=== PATIENT | female | born 1930 | race Caucasian/White ===

== ENCOUNTER 2016-12-01 12:32 | Emergency (ER) | payer OTHER ==
[~2016-12-01] VITALS: Ht 154.9 cm; Wt 47.7 kg
[~2016-12-01 12:32] MED LIST: ASPIRIN E.C.81 M1 PO; ATENOLOL25 MG PO; ATIVAN0.5 MG PO; AUGMENTIN875 MG PO; BACTRIM,SEPT1 TABLET PO; BLOOD PRESSURE PILL PO; CARAFATE100 MG/ML PO; CENTRUM SILV1 TABLE1 PO; CLONIDINE HCL0.1 MG PO; CYANOCOBALAM1000 MCG PO; FISH OIL 1,0001 EAC7 PO; FLAGYL500 MG PO; Fish Oil PO; KYTRIL1 MG PO; LISINOPRIL-HCT1 EAC3 PO; LISINOPRIL20 MG PO; LO-DOSE ASPIRIN81 M1 PO; LORAZEPAM0.5 MG PO; LOVASTATIN40 MG PO; METAMUCIL POWD798 GM PO; MULTIVITAMIN1 EAC2 PO; Mevacor PO; OMEPRAZOLE40 M1 PO; ONDANSETRON HCL4 MG PO; OXYBUTYNIN CHLOR5 MG PO; PEPCID AC20 M1 PO; PRINIVIL20 MG PO; PROBIOTIC1 EAC1 PO; PROTONIX40 MG PO; SPIRIVA1 INHALATI IH; SPIRONOLACTONE25 MG PO; SUCRALFATE1 GM PO; VENTOLIN HFA18 GM IH; VITAMIN B-650 M1 PO; VITAMIN B-650 MG PO; VITAMIN B12 100MCG PO; VITAMIN D31000 UNIT PO; ZANTAC150 MG PO; ZITHROMAX Z-PA250 MG PO; ZOFRAN ODT4 MG PO; ZOFRAN4 MG PO; predniSONE PO
[2016-12-01 14:30] LABS: ADD MIUA? YES; BILIRUBIN NEGATIVE; BLOOD SMALL; COLOR YELLOW ((YELLOW)); GLUCOSE (STRIP) NEGATIVE; KETONES NEGATIVE; LEUKOCYTES NEGATIVE; NITRITE NEGATIVE; PROTEIN (STRIP) NEGATIVE; SPECIFIC GRAVITY 1.012 (1.000-1.030); UROBILINOGEN 0.2 MG/DL (0.2-1.0)
[2016-12-01 14:38] LABS: BACTERIA RARE /HPF; CALCIUM OXALATE CRYSTALS 2+ /HPF; EPITHELIAL CELLS NONE SEEN /HPF; MUCUS TRACE /LPF; UCUL ADDED? NO; WHITE BLOOD CELLS 0-5 /HPF (0-5)
[2016-12-01] MEDS ORDERED: ZOFRAN ODT4 MG PO (15:24)
[2016-12-01] MEDS ORDERED: COLACE100 MG PO (15:24)
[2016-12-01 15:44] VITALS: BP 145/79
[2016-12-02] MEDS ORDERED: ZOFRAN ODT4 MG PO (16:49)
[2016-12-02] MEDS ORDERED: TYLENOL EXTRA500 MG PO (16:51)
[2016-12-02] MEDS ORDERED: PROBIOTIC1 EAC1 PO (16:51)
[2016-12-02] MEDS ORDERED: BACTRIM,SEPT1 TABLET PO (16:51)
== END 2016-12-01 15:45 | disposition home or self-care (01) ==
LOC: EME 12:32
DX: R10.30 Lower abdominal pain, unspecified (principal); R11.0 Nausea; K59.00 Constipation, unspecified; R31.9 Hematuria, unspecified; Z79.2 Long term (current) use of antibiotics; E78.5 Hyperlipidemia, unspecified
CPT/HCPCS: 74020; 81003; 99281; 99284

== ENCOUNTER 2016-12-02 14:29 | Observation (INO) | payer OTHER ==
[~2016-12-02] VITALS: Ht 156.2 cm; Wt 46.2 kg
[~2016-12-02 14:29] MED LIST changes: +COLACE100 MG PO
[2016-12-02 15:26] LABS: MCH 31.9 PG (29.0-34.0); MCV 91.1 FL (83-99); MEAN PLAT.VOLUME 9.7 uM^3 (9.5-12.4); PLATELET COUNT 310 K/uL (156-360); RBC DIS.WIDTH-CV 12.1 % (11.8-14.6); RBC DIS.WIDTH-SD 40.5 % (39-53); RED BLOOD COUNT 4.39 M/uL (3.80-5.20); WHITE BLOOD COUNT 4.6 K/uL (4.1-10.2)
[2016-12-02 15:46] LABS: TROP-I INTERPRETATION NEGATIVE; TROPONIN-I < 0.01 ng/mL (0.0-0.30)
[2016-12-02 15:56] LABS: ADD MIUA? YES; BILIRUBIN NEGATIVE; BLOOD SMALL; COLOR YELLOW ((YELLOW)); GLUCOSE (STRIP) NEGATIVE; KETONES NEGATIVE; LEUKOCYTES NEGATIVE; NITRITE NEGATIVE; PROTEIN (STRIP) NEGATIVE; SPECIFIC GRAVITY 1.009 (1.000-1.030); UROBILINOGEN 0.2 MG/DL (0.2-1.0)
[2016-12-02 16:16] LABS: CHLORIDE 93 mEq/L (99-109); POTASSIUM 4.9 mEq/L (3.7-5.4); SODIUM 123 mEq/L (136-147)
[2016-12-02 16:18] LABS: GLUCOSE 92 mg/dL (70-99)
[2016-12-02 16:19] LABS: ANION GAP 9 MEQ/L (2-14)
[2016-12-02 16:20] LABS: TOTAL BILIRUBIN 0.4 mg/dL (0.0-1.0)
[2016-12-02 16:22] LABS: ALKALINE PHOSPHATASE 74 IU/L (3-129); GFR ESTIMATE (CALCULATED) 56 mL/min/
[2016-12-02 16:23] LABS: UREA NITROGEN (BUN) 11 mg/dL (9-23)
[2016-12-02 16:25] LABS: LIPASE 54 U/L (1.0-51.0)
[2016-12-02 16:40] LABS: BACTERIA NONE SEEN /HPF; EPITHELIAL CELLS NONE SEEN /HPF; HYALINE CASTS 0-5 /LPF; MUCUS TRACE /LPF; RED BLOOD CELLS 0-5 /HPF (0-5); UCUL ADDED? NO; UNCLASSIFIED CRYSTALS 2+ /HPF; WHITE BLOOD CELLS 0-5 /HPF (0-5)
[2016-12-02] MEDS ORDERED: ZOFRAN ODT4 MG PO (16:49)
[2016-12-02] MEDS ORDERED: TYLENOL EXTRA500 MG PO (16:51)
[2016-12-02] MEDS ORDERED: BACTRIM,SEPT1 TABLET PO (16:51)
[2016-12-02] MEDS ORDERED: PROBIOTIC1 EAC1 PO (16:51)
[2016-12-02 20:55] VITALS: BP 130/80
[2016-12-03 00:29] VITALS: BP 151/61
[2016-12-03 04:12] VITALS: BP 148/68
[2016-12-03 07:45] VITALS: BP 146/71
[2016-12-03 10:48] VITALS: BP 142/68
[2016-12-03 11:05] LABS: ANION GAP 10 MEQ/L (2-14); CHLORIDE 100 MEQ/L (99-109); POTASSIUM 4.4 MEQ/L (3.7-5.4); SAMPLE HEMOLYSIS CHECK 0; SAMPLE ICTERIC CHECK 0; SAMPLE LIPEMIA CHECK 0
[2016-12-03 11:06] LABS: SODIUM 133 MEQ/L (136-147)
[2016-12-03 11:10] LABS: GFR ESTIMATE (CALCULATED) > 59 mL/min/; GLUCOSE 113 mg/dL (70-99); UREA NITROGEN (BUN) 6 mg/dL (9-23)
[2016-12-03 16:00] VITALS: BP 190/82
== END 2016-12-03 18:02 | disposition home or self-care (01) ==
LOC: EME 14:29 → EDOF 19:22 → 5WEST 19:22 → EDOF 19:22 → 5WEST 20:45
PROVIDERS: Emergency Medicine; Hospitalist; Physician Assistant
DX: R11.0 Nausea (principal); N17.9 Acute kidney failure, unspecified; N39.0 Urinary tract infection, site not specified; E87.1 Hypo-osmolality and hyponatremia; E87.6 Hypokalemia; E86.0 Dehydration; I10 Essential (primary) hypertension; E78.5 Hyperlipidemia, unspecified; J44.9 Chronic obstructive pulmonary disease, unspecified; Z86.711 Personal history of pulmonary embolism
CPT/HCPCS: 74176; 80048; 80053; 81003; 83605; 83690; 84484; 85027; 93005; 99281; 99285; G0378; J0780; J1644; J7040; J7042; S0028

== ENCOUNTER 2016-12-07 16:16 | Observation (INO) | payer OTHER ==
[~2016-12-07] VITALS: Ht 154.9 cm; Wt 47.5 kg
[~2016-12-07 16:16] MED LIST changes: +TYLENOL EXTRA500 MG PO
[2016-12-07 17:19] LABS: HEMATOCRIT 36.4 % (36.0-46.0); MCH 31.4 PG (29.0-34.0); MCHC 34.3 G/DL (30.0-36.0); MCV 91.5 FL (83-99); MEAN PLAT.VOLUME 8.7 uM^3 (9.5-12.4); PLATELET COUNT 225 K/uL (156-360); RBC DIS.WIDTH-CV 11.6 % (11.8-14.6); RBC DIS.WIDTH-SD 39.5 % (39-53); RED BLOOD COUNT 3.98 M/uL (3.80-5.20)
[2016-12-07 17:24] LABS: WHITE BLOOD COUNT 7.1 K/uL (4.1-10.2)
[2016-12-07 17:28] LABS: CHLORIDE 89 mEq/L (99-109); POTASSIUM 4.2 mEq/L (3.7-5.4); SODIUM 123 mEq/L (136-147)
[2016-12-07 17:29] LABS: GLUCOSE 100 mg/dL (70-99)
[2016-12-07 17:31] LABS: ANION GAP 12 MEQ/L (2-14)
[2016-12-07 17:33] LABS: GFR ESTIMATE (CALCULATED) > 59 mL/min/
[2016-12-07 17:34] LABS: UREA NITROGEN (BUN) 8 mg/dL (9-23)
[2016-12-07 17:39] LABS: TROP-I INTERPRETATION NEGATIVE; TROPONIN-I < 0.01 ng/mL (0.0-0.30)
[2016-12-07] MEDS ORDERED: POLYETHYLENE G255 GM PO (19:01)
[2016-12-07] MEDS ORDERED: SPIRONOLACTONE25 MG PO (19:01)
[2016-12-07 23:59] VITALS: BP 164/82
[2016-12-08 04:31] VITALS: BP 104/55
[2016-12-08 06:17] LABS: HEMATOCRIT 33.4 % (36.0-46.0); MCH 31.7 PG (29.0-34.0); MCHC 34.4 G/DL (30.0-36.0); PLATELET COUNT 199 K/uL (156-360); RBC DIS.WIDTH-CV 11.9 % (11.8-14.6); RBC DIS.WIDTH-SD 39.9 % (39-53); RED BLOOD COUNT 3.63 M/uL (3.80-5.20); WHITE BLOOD COUNT 5.3 K/uL (4.1-10.2)
[2016-12-08 06:56] LABS: ANION GAP 6 MEQ/L (2-14); CHLORIDE 97 MEQ/L (99-109); GFR ESTIMATE (CALCULATED) > 59 mL/min/; GLUCOSE 85 mg/dL (70-99); POTASSIUM 4.2 MEQ/L (3.7-5.4); SAMPLE HEMOLYSIS CHECK 0; SAMPLE ICTERIC CHECK 0; SAMPLE LIPEMIA CHECK 0; UREA NITROGEN (BUN) 7 mg/dL (9-23)
[2016-12-08 06:58] LABS: SODIUM 131 MEQ/L (136-147)
[2016-12-08 07:28] LABS: ADD MIUA? YES; BILIRUBIN NEGATIVE; BLOOD SMALL; COLOR STRAW ((YELLOW)); GLUCOSE (STRIP) NEGATIVE; KETONES NEGATIVE; LEUKOCYTES NEGATIVE; NITRITE NEGATIVE; PROTEIN (STRIP) NEGATIVE; SPECIFIC GRAVITY 1.003 (1.000-1.030); UROBILINOGEN 0.2 MG/DL (0.2-1.0)
[2016-12-08 07:32] LABS: BACTERIA NONE SEEN /HPF; EPITHELIAL CELLS NONE SEEN /HPF; MUCUS NONE SEEN /LPF; RED BLOOD CELLS 0-5 /HPF (0-5); UCUL ADDED? NO; WHITE BLOOD CELLS NONE SEEN /HPF (0-5)
[2016-12-08 08:00] VITALS: BP 144/65
[2016-12-08] MEDS ORDERED: CLONIDINE HCL0.1 MG PO (11:11)
[2016-12-08] MEDS ORDERED: LISINOPRIL20 MG PO (11:11)
== END 2016-12-08 13:48 | disposition home or self-care (01) ==
LOC: EME 16:16 → EXP 16:16 → EDOF 20:50 → 5WEST 20:50
PROVIDERS: Hospitalist
DX: I16.0 Hypertensive urgency (principal); I10 Essential (primary) hypertension; E87.1 Hypo-osmolality and hyponatremia; R63.1 Polydipsia; J44.9 Chronic obstructive pulmonary disease, unspecified; M19.90 Unspecified osteoarthritis, unspecified site; Z86.711 Personal history of pulmonary embolism; Z87.891 Personal history of nicotine dependence
CPT/HCPCS: 80048; 81003; 83935; 84300; 84484; 85027; 93005; 99202; 99281; 99285; G0378; J1644; J7030

== ENCOUNTER 2017-08-22 17:14 | Emergency (ER) | payer OTHER ==
[~2017-08-22] VITALS: Ht 154.9 cm; Wt 47.5 kg
[~2017-08-22 17:14] MED LIST changes: +POLYETHYLENE G255 GM PO
[2017-08-22 18:21] LABS: CHLORIDE 99 mEq/L (99-109); POTASSIUM 3.7 mEq/L (3.7-5.4); SODIUM 134 mEq/L (136-147)
[2017-08-22 18:23] LABS: GLUCOSE 95 mg/dL (70-99)
[2017-08-22 18:25] LABS: ANION GAP 5 MEQ/L (2-14); TOTAL BILIRUBIN 0.4 mg/dL (0.0-1.0)
[2017-08-22 18:27] LABS: ALKALINE PHOSPHATASE 83 IU/L (3-129); GFR ESTIMATE (CALCULATED) > 59 mL/min/
[2017-08-22 18:28] LABS: UREA NITROGEN (BUN) 13 mg/dL (9-23)
[2017-08-22 18:33] LABS: TROP-I INTERPRETATION NEGATIVE; TROPONIN-I 0.01 ng/mL (0.0-0.30)
[2017-08-22 18:36] LABS: MCH 31.8 PG (29.0-34.0); MCHC 33.5 G/DL (30.0-36.0); PLATELET COUNT 224 K/uL (156-360); RBC DIS.WIDTH-CV 12.3 % (11.8-14.6); RBC DIS.WIDTH-SD 42.9 % (39-53); RED BLOOD COUNT 4.21 M/uL (3.80-5.20); WHITE BLOOD COUNT 6.1 K/uL (4.1-10.2)
[2017-08-22 19:41] LABS: ADD MIUA? YES; BILIRUBIN NEGATIVE; BLOOD MODERATE; COLOR COLORLESS ((YELLOW)); GLUCOSE (STRIP) NEGATIVE; KETONES NEGATIVE; LEUKOCYTES TRACE; NITRITE NEGATIVE; PROTEIN (STRIP) NEGATIVE; SPECIFIC GRAVITY 1.004 (1.000-1.030); UROBILINOGEN 0.2 MG/DL (0.2-1.0)
[2017-08-22 20:03] LABS: BACTERIA RARE /HPF; EPITHELIAL CELLS NONE SEEN /HPF; MUCUS NONE SEEN /LPF; RED BLOOD CELLS 15-20 /HPF (0-5); UCUL ADDED? NO; WHITE BLOOD CELLS 0-5 /HPF (0-5)
[2017-08-22 21:36] VITALS: BP 140/72
[2017-08-22 21:38] LABS: TROP-I INTERPRETATION NEGATIVE; TROPONIN-I 0.01 ng/mL (0.0-0.30)
[2017-08-23] MEDS ORDERED: PERSANTINE50 MG PO (17:22)
== END 2017-08-22 21:36 | disposition home or self-care (01) ==
LOC: EME 17:14
PROVIDERS: Nurse Practitioner Family
DX: I10 Essential (primary) hypertension (principal); R51 Headache; I49.9 Cardiac arrhythmia, unspecified; E78.5 Hyperlipidemia, unspecified; Z85.42 Personal history of malignant neoplasm of other parts of uterus; Z90.710 Acquired absence of both cervix and uterus; Z79.82 Long term (current) use of aspirin; Z87.891 Personal history of nicotine dependence
CPT/HCPCS: 80053; 81003; 83835 90; 84484; 85027; 93005; 99281; 99285

== ENCOUNTER 2017-08-23 15:33 | Emergency (ER) | payer OTHER ==
[~2017-08-23] VITALS: Ht 154.9 cm; Wt 47.4 kg
[2017-08-23 16:23] LABS: HEMATOCRIT 39.4 % (36.0-46.0); MCH 32.1 PG (29.0-34.0); MCV 94.3 FL (83-99); MEAN PLAT.VOLUME 9.7 uM^3 (9.5-12.4); PLATELET COUNT 217 K/uL (156-360); RBC DIS.WIDTH-CV 12.3 % (11.8-14.6); RBC DIS.WIDTH-SD 42.8 % (39-53); RED BLOOD COUNT 4.18 M/uL (3.80-5.20); WHITE BLOOD COUNT 7.4 K/uL (4.1-10.2)
[2017-08-23 16:32] LABS: CHLORIDE 96 mEq/L (99-109); SODIUM 134 mEq/L (136-147)
[2017-08-23 16:33] LABS: GLUCOSE 96 mg/dL (70-99)
[2017-08-23 16:35] LABS: ANION GAP 10 MEQ/L (2-14)
[2017-08-23 16:37] LABS: GFR ESTIMATE (CALCULATED) > 59 mL/min/
[2017-08-23 16:38] LABS: UREA NITROGEN (BUN) 16 mg/dL (9-23)
[2017-08-23 17:07] VITALS: BP 186/94
[2017-08-23] MEDS ORDERED: PERSANTINE50 MG PO (17:22)
== END 2017-08-23 17:26 | disposition home or self-care (01) ==
LOC: EME 15:33
PROVIDERS: Physician Assistant
DX: I10 Essential (primary) hypertension (principal); E78.5 Hyperlipidemia, unspecified; K21.9 Gastro-esophageal reflux disease without esophagitis; Z87.891 Personal history of nicotine dependence; Z85.42 Personal history of malignant neoplasm of other parts of uterus; Z90.710 Acquired absence of both cervix and uterus; Z90.49 Acquired absence of other specified parts of digestive tract; Z79.82 Long term (current) use of aspirin; Z88.5 Allergy status to narcotic agent; Z88.1 Allergy status to other antibiotic agents; Z88.8 Allergy status to other drugs, medicaments and biological substances
CPT/HCPCS: 80048; 85027

== ENCOUNTER 2017-10-10 14:24 | Observation (INO) | payer OTHER ==
[~2017-10-10] VITALS: Ht 152.4 cm; Wt 49.9 kg
[~2017-10-10 14:24] MED LIST changes: +PERSANTINE50 MG PO; +PROAIR HFA8.5 GM IH; -VENTOLIN HFA18 GM IH
[2017-10-10 15:34] LABS: HEMOGLOBIN 12.5 G/DL (11.9-15.5); MCH 32.2 PG (29.0-34.0); MCHC 33.8 G/DL (30.0-36.0); MCV 95.4 FL (83-99); PLATELET COUNT 202 K/uL (156-360); RBC DIS.WIDTH-CV 12.8 % (11.8-14.6); RBC DIS.WIDTH-SD 44.5 % (39-53); RED BLOOD COUNT 3.88 M/uL (3.80-5.20); WHITE BLOOD COUNT 6.8 K/uL (4.1-10.2)
[2017-10-10 15:45] LABS: ALBUMIN 3.9 g/dL (3.2-4.8)
[2017-10-10 15:46] LABS: CHLORIDE 101 mEq/L (99-109); POTASSIUM 3.9 mEq/L (3.7-5.4); SODIUM 136 mEq/L (136-147)
[2017-10-10 15:48] LABS: GLUCOSE 106 mg/dL (70-99); TOTAL PROTEIN 6.2 g/dL (6.4-8.3)
[2017-10-10 15:50] LABS: TOTAL BILIRUBIN 0.4 mg/dL (0.0-1.0)
[2017-10-10 15:51] LABS: ALKALINE PHOSPHATASE 84 IU/L (3-129)
[2017-10-10 15:52] LABS: CREATININE 0.8 mg/dL (0.6-1.3); GFR ESTIMATE (CALCULATED) > 59 mL/min/
[2017-10-10 15:53] LABS: AST (GOT) 26 IU/L (2-34); UREA NITROGEN (BUN) 13 mg/dL (9-23)
[2017-10-10 15:54] LABS: ALT (GPT) 21 IU/L (3-49)
[2017-10-10 15:56] LABS: APPEARANCE CLEAR ((CLEAR)); BILIRUBIN NEGATIVE; BLOOD MODERATE; COLOR YELLOW ((YELLOW)); GLUCOSE (STRIP) NEGATIVE; KETONES NEGATIVE; LEUKOCYTES TRACE; NITRITE NEGATIVE; PROTEIN (STRIP) NEGATIVE; SPECIFIC GRAVITY 1.004 (1.000-1.030); UROBILINOGEN 0.2 MG/DL (0.2-1.0)
[2017-10-10 15:56] LABS: TROP-I INTERPRETATION NEGATIVE; TROPONIN-I 0.03 ng/mL (0.0-0.30)
[2017-10-10 16:02] LABS: BACTERIA RARE /HPF; EPITHELIAL CELLS NONE SEEN /HPF; MUCUS TRACE /LPF; RED BLOOD CELLS 0-5 /HPF (0-5); UCUL ADDED? NO; WHITE BLOOD CELLS 0-5 /HPF (0-5)
[2017-10-10 17:05] LABS: THYROTROPIN (TSH) 2.1 MIU/L (0.4-5.5)
[2017-10-10] MEDS ORDERED: DIPYRIDAMOLE25 MG PO (19:16)
[2017-10-10] MEDS ORDERED: LORAZEPAM0.5 MG PO (19:21)
[2017-10-10] MEDS ORDERED: PRAZOSIN HCL2 MG PO (19:23)
[2017-10-10] MEDS ORDERED: LO-DOSE ASPIRIN81 M2 PO (19:24)
[2017-10-10] MEDS ORDERED: ENZYME DIGEST1 EACH PO (19:30)
[2017-10-10] MEDS ORDERED: LOVASTATIN40 MG PO (19:31)
[2017-10-10] MEDS ORDERED: SENOKOT,SENN1 TABLET PO (19:32)
[2017-10-10] MEDS ORDERED: ZANTAC150 MG PO (19:33)
[2017-10-10] MEDS ORDERED: GAS-X EXTRA ST125 MG PO (19:34)
[2017-10-10 20:00] VITALS: BP 128/82
[2017-10-10 20:30] VITALS: BP 116/78; BP 176/80; BP 197/88
[2017-10-10 23:03] VITALS: BP 186/86
[2017-10-11 03:45] VITALS: BP 113/54
[2017-10-11 05:47] LABS: BASOPHIL (%) 0.8 % (0-1); BASOPHIL COUNT 0.1 K/uL (0-0.1); EOSINOPHIL (%) 4.3 % (0-5); EOSINOPHIL COUNT 0.3 K/uL (0-0.3); HEMATOCRIT 37.4 % (36.0-46.0); HEMOGLOBIN 12.3 G/DL (11.9-15.5); IMMATURE GRANULOCYTE (%) 0.2 % (0.0-0.7); LYMPHOCYTE (%) 37.8 % (15-42); LYMPHOCYTE COUNT 2.4 K/uL (1.0-2.8); MCH 31.2 PG (29.0-34.0); MCHC 32.9 G/DL (30.0-36.0); MCV 94.9 FL (83-99); MONOCYTE (%) 13.4 % (3-12); MONOCYTE COUNT 0.8 K/uL (0-0.8); NEUTROPHIL (%) 43.5 % (45-76); NEUTROPHIL COUNT 2.7 K/uL (1.8-6.4); PLATELET COUNT 226 K/uL (156-360); RBC DIS.WIDTH-CV 12.7 % (11.8-14.6); RBC DIS.WIDTH-SD 44.4 % (39-53); RED BLOOD COUNT 3.94 M/uL (3.80-5.20); WHITE BLOOD COUNT 6.2 K/uL (4.1-10.2)
[2017-10-11 06:25] LABS: ALBUMIN 3.6 G/DL (3.2-4.8); ALKALINE PHOSPHATASE 61 IU/L (3-129); ALT (GPT) 15 IU/L (3-49); AST (GOT) 19 IU/L (2-34); CHLORIDE 103 MEQ/L (99-109); CREATININE 0.7 MG/DL (0.6-1.3); DIRECT BILIRUBIN 0.1 mg/dL (0.0-0.3); GFR ESTIMATE (CALCULATED) > 59 mL/min/; GLUCOSE 90 mg/dL (70-99); POTASSIUM 3.8 MEQ/L (3.7-5.4); SODIUM 138 MEQ/L (136-147); TOTAL BILIRUBIN 0.6 MG/DL (0.0-1.0); TOTAL PROTEIN 5.5 G/DL (6.4-8.3); UREA NITROGEN (BUN) 10 mg/dL (9-23)
[2017-10-11 07:50] VITALS: BP 134/67
[2017-10-11 11:42] VITALS: BP 131/68
[2017-10-11 15:23] VITALS: BP 132/61
== END 2017-10-11 19:14 | disposition home or self-care (01) ==
LOC: EME 14:24 → EDOF 18:41 → 5WEST 18:41 → EDOF 18:41 → ENRESERV 18:42 → 5WEST 20:23
PROVIDERS: Emergency Medicine; Hospitalist
DX: R55 Syncope and collapse (principal); I10 Essential (primary) hypertension; E78.5 Hyperlipidemia, unspecified; Z86.711 Personal history of pulmonary embolism; J44.9 Chronic obstructive pulmonary disease, unspecified; E22.2 Syndrome of inappropriate secretion of antidiuretic hormone; Z87.440 Personal history of urinary (tract) infections; Z85.42 Personal history of malignant neoplasm of other parts of uterus; M19.90 Unspecified osteoarthritis, unspecified site; Z87.891 Personal history of nicotine dependence; Z90.710 Acquired absence of both cervix and uterus; Z85.828 Personal history of other malignant neoplasm of skin; Z90.49 Acquired absence of other specified parts of digestive tract; Z88.5 Allergy status to narcotic agent; Z88.1 Allergy status to other antibiotic agents; Z88.8 Allergy status to other drugs, medicaments and biological substances
CPT/HCPCS: 70450; 71045; 71275; 80048; 80053; 80076; 81003; 84443; 84484; 85025; 85027; 93005; 99281; 99284; G0378; J1644

== ENCOUNTER 2017-10-12 14:06 | Emergency (ER) | payer OTHER ==
[~2017-10-12] VITALS: Ht 154.9 cm; Wt 48.1 kg
[~2017-10-12 14:06] MED LIST changes: +DIPYRIDAMOLE25 MG PO; +ENZYME DIGEST1 EACH PO; +GAS-X EXTRA ST125 MG PO; +LO-DOSE ASPIRIN81 M2 PO; +PRAZOSIN HCL2 MG PO; +SENOKOT,SENN1 TABLET PO
[2017-10-12 15:52] VITALS: BP 110/60
== END 2017-10-12 15:53 | disposition home or self-care (01) ==
LOC: EME 14:06
PROVIDERS: Physician Assistant
DX: B34.9 Viral infection, unspecified (principal); I10 Essential (primary) hypertension; Z85.038 Personal history of other malignant neoplasm of large intestine; Z87.891 Personal history of nicotine dependence; Z88.5 Allergy status to narcotic agent; Z88.8 Allergy status to other drugs, medicaments and biological substances
CPT/HCPCS: 87502; 99281; 99283

== ENCOUNTER 2018-01-03 16:51 | Emergency (ER) | payer OTHER ==
[~2018-01-03] VITALS: Ht 157.5 cm; Wt 51.8 kg
[2018-01-03 17:36] LABS: BASOPHIL (%) 0.4 % (0-1); EOSINOPHIL (%) 0.9 % (0-5); EOSINOPHIL COUNT 0.1 K/uL (0-0.3); HEMATOCRIT 37.7 % (36.0-46.0); HEMOGLOBIN 12.9 G/DL (11.9-15.5); IMMATURE GRANULOCYTE (%) 0.4 % (0.0-0.7); LYMPHOCYTE (%) 34.1 % (15-42); LYMPHOCYTE COUNT 1.9 K/uL (1.0-2.8); MCHC 34.2 G/DL (30.0-36.0); MCV 93.5 FL (83-99); MONOCYTE (%) 10.1 % (3-12); MONOCYTE COUNT 0.6 K/uL (0-0.8); NEUTROPHIL (%) 54.1 % (45-76); PLATELET COUNT 169 K/uL (156-360); RBC DIS.WIDTH-CV 12.5 % (11.8-14.6); RBC DIS.WIDTH-SD 43.7 % (39-53); RED BLOOD COUNT 4.03 M/uL (3.80-5.20); WHITE BLOOD COUNT 5.6 K/uL (4.1-10.2)
[2018-01-03 17:46] LABS: ALBUMIN 4.3 g/dL (3.2-4.8); CHLORIDE 100 mEq/L (99-109); POTASSIUM 3.6 mEq/L (3.7-5.4); SODIUM 136 mEq/L (136-147)
[2018-01-03 17:48] LABS: GLUCOSE 112 mg/dL (70-99); TOTAL PROTEIN 6.8 g/dL (6.4-8.3)
[2018-01-03 17:50] LABS: TOTAL BILIRUBIN 0.5 mg/dL (0.0-1.0)
[2018-01-03 17:52] LABS: ALKALINE PHOSPHATASE 71 IU/L (3-129); CREATININE 0.9 mg/dL (0.6-1.3); GFR ESTIMATE (CALCULATED) > 59 mL/min/
[2018-01-03 17:53] LABS: AST (GOT) 27 IU/L (2-34); UREA NITROGEN (BUN) 9 mg/dL (9-23)
[2018-01-03 17:54] LABS: DIRECT BILIRUBIN 0.2 mg/dL (0.0-0.3)
[2018-01-03 17:55] LABS: ALT (GPT) 21 IU/L (3-49); LIPASE 31 U/L (1.0-51.0)
[2018-01-03 17:58] LABS: TROP-I INTERPRETATION NEGATIVE; TROPONIN-I < 0.01 ng/mL (0.0-0.30)
[2018-01-03 18:11] LABS: APPEARANCE SL.HAZY ((CLEAR)); BILIRUBIN NEGATIVE; BLOOD MODERATE; COLOR YELLOW ((YELLOW)); GLUCOSE (STRIP) NEGATIVE; KETONES NEGATIVE; LEUKOCYTES MODERATE; NITRITE NEGATIVE; PROTEIN (STRIP) NEGATIVE; SPECIFIC GRAVITY 1.005 (1.000-1.030); UROBILINOGEN 0.2 MG/DL (0.2-1.0)
[2018-01-03 18:16] LABS: BACTERIA RARE /HPF; EPITHELIAL CELLS RARE /HPF; MUCUS TRACE /LPF; RED BLOOD CELLS 0-5 /HPF (0-5); WHITE BLOOD CELLS 0-5 /HPF (0-5)
[2018-01-03] MEDS ORDERED: ZOFRAN ODT4 MG PO (18:40)
[2018-01-03 19:49] VITALS: BP 184/89
== END 2018-01-03 19:58 | disposition home or self-care (01) ==
LOC: EME 16:51
PROVIDERS: Physician Assistant
DX: M54.5 Low back pain (principal); G89.29 Other chronic pain; R11.0 Nausea; R53.1 Weakness; M47.896 Other spondylosis, lumbar region; M25.78 Osteophyte, vertebrae; R91.1 Solitary pulmonary nodule; I70.0 Atherosclerosis of aorta; I10 Essential (primary) hypertension; E78.5 Hyperlipidemia, unspecified; Z85.038 Personal history of other malignant neoplasm of large intestine; Z85.42 Personal history of malignant neoplasm of other parts of uterus; Z90.710 Acquired absence of both cervix and uterus; Z90.49 Acquired absence of other specified parts of digestive tract; Z79.82 Long term (current) use of aspirin; Z87.891 Personal history of nicotine dependence
CPT/HCPCS: 71046; 72100; 80048; 80076; 81003; 83690; 84484; 85025; 93005; 99281; 99284

== ENCOUNTER 2018-02-03 14:48 | Emergency (ER) | payer OTHER ==
[~2018-02-03] VITALS: Ht 154.9 cm; Wt 116.9 kg
[2018-02-03 15:40] LABS: HEMATOCRIT 38.1 % (36.0-46.0); HEMOGLOBIN 12.9 G/DL (11.9-15.5); MCH 32.4 PG (29.0-34.0); MCHC 33.9 G/DL (30.0-36.0); MCV 95.7 FL (83-99); PLATELET COUNT 188 K/uL (156-360); RBC DIS.WIDTH-CV 12.6 % (11.8-14.6); RBC DIS.WIDTH-SD 44.4 % (39-53); RED BLOOD COUNT 3.98 M/uL (3.80-5.20); WHITE BLOOD COUNT 8.9 K/uL (4.1-10.2)
[2018-02-03 15:50] LABS: CHLORIDE 99 mEq/L (99-109); SODIUM 134 mEq/L (136-147)
[2018-02-03 15:52] LABS: GLUCOSE 116 mg/dL (70-99)
[2018-02-03 15:56] LABS: CREATININE 1.1 mg/dL (0.6-1.3); GFR ESTIMATE (CALCULATED) 50 mL/min/
[2018-02-03 15:57] LABS: UREA NITROGEN (BUN) 17 mg/dL (9-23)
[2018-02-03 20:17] VITALS: BP 148/63
== END 2018-02-03 20:18 | disposition left against medical advice (07) ==
LOC: EME 14:48
DX: E86.0 Dehydration (principal); R91.1 Solitary pulmonary nodule; I10 Essential (primary) hypertension; E78.5 Hyperlipidemia, unspecified; Z85.42 Personal history of malignant neoplasm of other parts of uterus; Z90.710 Acquired absence of both cervix and uterus; Z90.49 Acquired absence of other specified parts of digestive tract; Z79.82 Long term (current) use of aspirin; Z87.891 Personal history of nicotine dependence
CPT/HCPCS: 71046; 71250; 80048; 85027; 93005; 99281; 99285; J7030